=== PATIENT | female | born 1940 | race Caucasian/White ===

== ENCOUNTER 2020-03-31 09:05 | Outpatient (CLI) | payer MEDICARE ==
--- NOTE | 2020-03-31 14:39 | CT ---
CT ABDOMEN AND PELVIS WITH CONTRAST: 03/31/20 HX Abdominal bloating for the past month and abdominal pain. TECHNIQUE: Multiple contiguous axial images were obtained in a CT of the abdomen and pelvis with contrast. PO c ontrast was administered. Sagittal and coronal reformats were performed. FINDINGS: There is diffuse fatty infiltration of the liver. Calcifications in the liver and spleen are from pr ior granulomatous disease. There is a large hiatal hernia. There is a 1.9 cm right adrenal mass. The re may also be a thinner left adrenal mass versus hyperplasia of the left adrenal gland. The kidneys and pancreas are unremarkable. The gallbladder is unremarkable. The patient is status post hysterectomy. The large and small bowel are unremarkable. The appendix is normal. No abdominal or pelvic lymphadenopathy are seen. Degenerative changes are seen in the spine. The abdominal wall soft tissues are unremarkable. There is a calcified granuloma in the lingula. IMPRESSION: 1. No evidence of acute intra-abdominal/pelvic abnormality. 2. Bilateral adrenal masses. 3. Fatty liver. 4. Large hiatal hernia. POS: EAA
== END 2020-03-31 09:06 | disposition home or self-care (01) ==
LOC: SCSCT 09:05
PROVIDERS: ATTEND Internal Medicine Endocrinology, Diabetes & Metabolism
DX: R14.0 Abdominal distension (gaseous) (principal); I82.402 Acute embolism and thrombosis of unspecified deep veins of left lower extremity; K76.0 Fatty (change of) liver, not elsewhere classified; E27.8 Other specified disorders of adrenal gland; K44.9 Diaphragmatic hernia without obstruction or gangrene
CPT/HCPCS: 74177; 82565